=== PATIENT | male | born 1980 | race Hispanic/Latino ===

== ENCOUNTER 2024-08-16 08:50 | Emergency (ER) | payer SELFPAY ==
[2024-08-16] VITALS (17 sets, daily range): BP systolic 145–238; BP diastolic 91–131
[~2024-08-16] VITALS: Ht 165.1 cm; Wt 154.2 kg
[2024-08-16] MEDS ORDERED: LIDOcaine HCl 1% (Local Anesth.) 20 ML VIAL STI STA (09:13)
[2024-08-16] MEDS ORDERED: MORPHINE SULFATE 4 MG/ML VIAL IV ONE (09:15)
[2024-08-16] MEDS ORDERED: ONDANSETRON HCl 4 MG/2 ML SDV IV ONE (09:15)
[2024-08-16] MEDS ORDERED: LABETALOL HCL 100 MG/20 ML VIAL IV ONE (09:15)
[2024-08-16] MEDS ORDERED: POVIDONE IODINE 0.5 OZ/BTL TOP ONE (09:15)
[2024-08-16] MEDS ORDERED: cefTRIAXone SODIUM 2 GM in SODIUM CHLORIDE 0.9% 100 ML IV ONE (09:15)
[2024-08-16] MEDS ORDERED: ACETAMINOPHEN 500 MG TAB PO ONE (09:15)
[2024-08-16] MEDS ORDERED: VANCOMYCIN HCL 1 GM in SODIUM CHLORIDE 0.9% 250 ML IV ONE (09:15)
[2024-08-16 09:55] LABS: URINE BILIRUBIN - DIPSTICK Negative (NEGATIVE); URINE BLOOD DIPSTICK Moderate (NEGATIVE); URINE COLOR Yellow; URINE GLUCOSE - DIPSTICK Negative (NEGATIVE); URINE KETONE Negative (NEGATIVE); URINE LEUK ESTERASE Negative (NEGATIVE); URINE NITRITE - DIPSTICK Negative (Negative); URINE PROTEIN - DIPSTICK >=300 mg/dL (NEG-TRACE); URINE SPECIFIC GRAVITY >=1.030; URINE UROBILINOGEN - DIPSTICK 0.2 E.U./dL (0.2)
[2024-08-16 09:55] LABS: BASO% 0.4 % (0-3); HEMATOCRIT 49.2 % (39.0-50.0); HEMOGLOBIN 15.2 g/dl (14.0-18.0); IMMATURE GRANULOCYTES 1.1 % (0.0-5.0); LYMPH% 13.7 % (15-41); MEAN CELL VOLUME 89.8 fL CALC (80.0-100.0); MEAN CORPUSCULAR HGB 27.7 pG CALC (26.0-32.0); MEAN CORPUSCULAR HGB CONC 30.9 g/dL CAL (32.0-36.0); MONO% 8.1 % (2-13); NEUT# 8.62 thou/uL (1.82-7.42); NEUT% 75.7 % (42-76); RED BLOOD COUNT 5.48 mill/uL (4.70-6.10); RED CELL DISTRI WIDTH 14.2 % (11.5-15.5)
[2024-08-16 10:04] LABS: ALBUMIN 4.1 g/dL (3.2-5.0); BILIRUBIN, TOTAL 0.7 mg/dL (0.2-1.3); POTASSIUM 3.8 mmol/l (3.5-5.1); TOTAL PROTEIN 7.4 g/dL (6.3-8.2)
[2024-08-16] MEDS ORDERED: hydrALAZINE HCL 20 MG/ML VIAL(1 ML) IV ONE (10:25)
[2024-08-16] MEDS ORDERED: [UNRECOGNIZED DRUG - OTHER] OU (11:05)
[2024-08-16] MEDS ORDERED: BACTRIM DS1 TAB PO (11:05)
[2024-08-16] MEDS ORDERED: LASIX 40 MG TAB40 MG PO (11:05)
[2024-08-16] MEDS ORDERED: AMLODIPINE BESY10 MG PO (11:05)
[2024-08-16] MEDS ORDERED: SPIRONOLACT25 MG PO (11:05)
[2024-08-16] MEDS ORDERED: ZESTRIL40 MG PO (11:05)
[2024-08-16] MEDS ORDERED: CEPHALEXIN500 M1 PO (11:05)
[2024-08-16] MEDS ORDERED: HYDROCORT0.51 EX (11:05)
[2024-08-16] MEDS ORDERED: FUROSEMIDE 40 MG/TAB PO ONE (11:10)
[2024-08-16] MEDS ORDERED: amLODIPine BESYLATE 5 MG/TAB PO ONE (11:10)
[2024-08-16] MEDS ORDERED: SPIRONOLACTONE 25 MG/TAB PO ONE (11:10)
[2024-08-16] MEDS ORDERED: LISINOPRIL 20 MG/TAB PO ONE (11:10)
[2024-08-17] MEDS ORDERED: ATORVASTATIN CA10 MG PO (01:31)
[2024-08-17] MEDS ORDERED: ISOSORBIDE MONO60 MG PO (01:31)
== END 2024-08-16 13:39 | disposition home or self-care (01) | DRG 603 ==
LOC: ED 08:50
PROVIDERS: Family Medicine
PROC: 0H9EXZZ Drainage of Left Lower Arm Skin, External Approach (ICD-10-PCS; principal; 2024-08-16)
DX: L02.414 Cutaneous abscess of left upper limb (principal); L03.114 Cellulitis of left upper limb; B95.62 Methicillin resistant Staphylococcus aureus infection as the cause of diseases classified elsewhere; I10 Essential (primary) hypertension; E66.01 Morbid (severe) obesity due to excess calories

== ENCOUNTER 2024-08-16 23:43 | Emergency (ER) | payer SELFPAY ==
[~2024-08-16] VITALS: Ht 170.2 cm; Wt 158.0 kg
[~2024-08-16 23:43] MED LIST: AMLODIPINE BESY10 MG PO; BACTRIM DS1 TAB PO; CEPHALEXIN500 M1 PO; HYDROCORT0.51 EX; LASIX 40 MG TAB40 MG PO; SPIRONOLACT25 MG PO; ZESTRIL40 MG PO; [UNRECOGNIZED DRUG - OTHER] OU
[2024-08-16] MEDS ORDERED: PIPERACILLIN Sodium-Tazobactam 3.375 GM in SODIUM CHLORIDE 0.9% 100 ML IV ONE (23:55)
[2024-08-16] MEDS ORDERED: ISOVUE-300 (Iopamidol) 100 ML SDV IV ONE (23:55)
[2024-08-16] MEDS ORDERED: DEXAMETHASONE SOD. PHOSPHATE 10 MG/ML VIAL IV ONE (23:55)
[2024-08-17] VITALS (9 sets, daily range): BP systolic 123–145; BP diastolic 81–100
[2024-08-17 00:27] LABS: BASO% 0.3 % (0-3); EOS% 2.2 % (0-8); HEMATOCRIT 47.7 % (39.0-50.0); HEMOGLOBIN 14.7 g/dl (14.0-18.0); IMMATURE GRANULOCYTES 0.6 % (0.0-5.0); LYMPH% 21.5 % (15-41); MEAN CORPUSCULAR HGB 27.7 pG CALC (26.0-32.0); MEAN CORPUSCULAR HGB CONC 30.8 g/dL CAL (32.0-36.0); MONO% 9.4 % (2-13); NEUT# 7.61 thou/uL (1.82-7.42); RED BLOOD COUNT 5.3 mill/uL (4.70-6.10); RED CELL DISTRI WIDTH 14.4 % (11.5-15.5)
[2024-08-17 00:42] LABS: ALBUMIN 3.6 g/dL (3.2-5.0); BILIRUBIN, TOTAL 0.5 mg/dL (0.2-1.3); CREATININE 1.3 mg/dL (0.7-1.3); POTASSIUM 3.5 mmol/l (3.5-5.1); TOTAL PROTEIN 6.7 g/dL (6.3-8.2)
[2024-08-17] MEDS ORDERED: ISOSORBIDE MONO60 MG PO (01:31)
[2024-08-17] MEDS ORDERED: ATORVASTATIN CA10 MG PO (01:31)
== END 2024-08-17 03:40 | disposition short-term general hospital (02) | DRG 153 ==
LOC: ED 23:43
PROVIDERS: Emergency Medicine
DX: J36 Peritonsillar abscess (principal); L02.414 Cutaneous abscess of left upper limb; L03.114 Cellulitis of left upper limb; I11.0 Hypertensive heart disease with heart failure; I50.9 Heart failure, unspecified; E11.9 Type 2 diabetes mellitus without complications; Z72.0 Tobacco use; M79.632 Pain in left forearm; B95.62 Methicillin resistant Staphylococcus aureus infection as the cause of diseases classified elsewhere; I10 Essential (primary) hypertension; E66.01 Morbid (severe) obesity due to excess calories
CPT/HCPCS: Q9967